=== PATIENT | female | born 1965 | race Caucasian/White ===

== ENCOUNTER 2024-06-02 06:28 | Day surgery (SDC) | payer BC, SELFPAY ==
[2024-06-02 08:41] LABS: Glucose - Point of Care 130 mg/dl (70-99)
== END 2024-06-02 10:16 | disposition home or self-care (01) ==
LOC: GI 06:28
PROVIDERS: ATTENDING PHYSICIAN Internal Medicine
DX: Z12.11 Encounter for screening for malignant neoplasm of colon (principal); K64.9 Unspecified hemorrhoids; K57.30 Diverticulosis of large intestine without perforation or abscess without bleeding; D12.0 Benign neoplasm of cecum; D12.3 Benign neoplasm of transverse colon; Z86.0101 Personal history of adenomatous and serrated colon polyps
CPT/HCPCS: 45385; 45380; 88305; 82962

== ENCOUNTER → 2024-10-23 18:44 | Outpatient (REF) | payer BC, SELFPAY | LOC: WDC 18:44 | PROVIDERS: ATTENDING PHYSICIAN Family Medicine | DX: Z12.31 Encounter for screening mammogram for malignant neoplasm of breast (principal) | CPT/HCPCS: 77063; 77067 ==